=== PATIENT | female | born 1955 | race Caucasian/White ===

== ENCOUNTER → 2016-09-21 | Outpatient (CLI) | payer BC ==
--- NOTE | 2016-09-22 08:54 | MM ---
Reason for exam: screening (asymptomatic). Last mammogram was performed 2 years and 5 months ago. History: Patient is postmenopausal. Physical Findings: A clinical breast exam by your physician is recommended on an annual basis and results should be correlated with mammographic findings. MG Screening Mammo w CAD Bilateral CC and MLO view(s) were taken. Prior study comparison: April 11, 2014, bilateral MG screening mammo w CAD. July 14, 2006, bilateral screening mammogram w/CAD. There are scattered fibroglandular densities. No significant changes when compared with prior studies. ASSESSMENT: Benign, BI-RAD 2 RECOMMENDATION: Routine screening mammogram of both breasts in 1 year.
== END | disposition home or self-care (01) ==
LOC: RADMAMWWP 08:43
PROVIDERS: ATTEND Family Medicine
DX: Z12.31 Encounter for screening mammogram for malignant neoplasm of breast (principal)

== ENCOUNTER → 2019-01-13 | Outpatient (CLI) | payer BC ==
--- NOTE | 2019-01-13 15:48 | US ---
EXAMINATION TYPE: US thyroid st tissue head/neck DATE OF EXAM: 01/13/2019 COMPARISON: NONE CLINICAL HISTORY: L02.91 abscess. Patient states she had a tick bite that grew and her skin was turni ng red. She has been on two rounds of antibiotics. Order states abscess. Scanned over area, left posterior neck, that patient pointed out as area of concern. There is av0.5 x 0.5 x 0.5 cm hypoechoic area that appears encased. Adjacent to this there is a 0.6 x 0.4 cm hypoecho ic area that also appears encased. No drainable fluid collection identified. IMPRESSION: 1. Subcutaneous collections could be tiny abscesses. These are 0.5 cm or less.
== END ==
LOC: RADUSWWP 15:05
PROVIDERS: ATTEND Family Medicine
DX: L02.91 Cutaneous abscess, unspecified (principal)
CPT/HCPCS: 76536

== ENCOUNTER → 2019-01-30 | Outpatient (CLI) | payer MEDICARE, BC ==
--- NOTE | 2019-02-01 09:10 | MM ---
Reason for exam: screening (asymptomatic). Last mammogram was performed 2 years and 4 months ago. History: Patient is postmenopausal. Physical Findings: A clinical breast exam by your physician is recommended on an annual basis and results should be correlated with mammographic findings. MG 3D Screening Mammo W/Cad Bilateral CC and MLO view(s) were taken. Prior study comparison: September 21, 2016, bilateral MG screening mammo w CAD. April 11, 2014, bilateral MG screening mammo w CAD. The breast tissue is heterogeneously dense. This may lower the sensitivity of mammography. No discrete abnormality. ASSESSMENT: Negative, BI-RAD 1 RECOMMENDATION: Routine screening mammogram of both breasts in 1 year.
== END | disposition home or self-care (01) ==
LOC: RADMAMWWP 10:08
PROVIDERS: ATTEND Family Medicine
DX: Z12.31 Encounter for screening mammogram for malignant neoplasm of breast (principal)
CPT/HCPCS: 77063; 77067

== ENCOUNTER → 2020-03-05 | Outpatient (CLI) | payer MEDICARE | END | disposition home or self-care (01) | LOC: LABWHC1 08:02 | PROVIDERS: ATTEND Family Medicine | DX: Z20.828 Contact with and (suspected) exposure to other viral communicable diseases (principal) | CPT/HCPCS: U0003; C9803 ==

== ENCOUNTER → 2021-07-18 | Outpatient (CLI) | payer MEDICARE ==
--- NOTE | 2021-07-22 09:46 | MM ---
Reason for exam: screening (asymptomatic). Last mammogram was performed 2 years and 6 months ago. History: Patient is postmenopausal. Physical Findings: A clinical breast exam by your physician is recommended on an annual basis and results should be correlated with mammographic findings. MG 3D Screening Mammo W/Cad Bilateral CC and MLO view(s) were taken. Prior study comparison: January 30, 2019, bilateral MG 3d screening mammo w/cad. September 21, 2016, bilateral MG screening mammo w CAD. There are scattered fibroglandular densities. No significant changes when compared with prior studies. ASSESSMENT: Benign, BI-RAD 2 RECOMMENDATION: Routine screening mammogram of both breasts in 1 year.
== END | disposition home or self-care (01) ==
LOC: RADMAMWWP 07:53
PROVIDERS: ATTEND Family Medicine
DX: Z12.31 Encounter for screening mammogram for malignant neoplasm of breast (principal)
CPT/HCPCS: 77063; 77067

== ENCOUNTER → 2023-02-24 | Outpatient (CLI) | payer MEDICARE ==
--- NOTE | 2023-02-25 08:13 | MM ---
Reason for Exam: Screening (asymptomatic). Last mammogram was performed 1 year(s) and 8 month(s) ago. Patient History: Menarche at age 15. First Full-Term at age 19. Postmenopausal. Risk Values: Lucrecia 5 year model risk: 1.4%. NCI Lifetime model risk: 4.3%. Prior Study Comparison: 09/21/2016 Bilateral Screening Mammogram, [facility]. 01/30/2019 Bilateral Screening Mammogram, [facility] 07/18/2021 Bilateral Screening Mammogram, [facility]. Tissue Density: The breast tissue is heterogeneously dense. This may lower the sensitivity of mammography. Findings: Analyzed By CAD. There is no suspicious group of microcalcifications or new suspicious mass in either breast. Benign vascular calcifications within the right breast. Overall Assessment: Benign, BI-RAD 2 Management: Screening Mammogram of both breasts in 1 year. A clinical breast exam by your physician is recommended on an annual basis and results should be correlated with mammographic findings. Note on Lucrecia scores and lifetime risk: 1. A Lucrecia score greater than 3% is considered moderate risk. If this is the case, consider specialist referral to assess eligibility for a risk reducing agent. If overall lifetime risk for the development of breast cancer is 20% or higher, the patient may qualify for future screening with alternating mammogram and breast MRI. Electronically signed and approved by: Ryan Ray D.O.
== END | disposition home or self-care (01) ==
LOC: RADMAMWWP 15:43
PROVIDERS: ATTEND Family Medicine
DX: Z12.31 Encounter for screening mammogram for malignant neoplasm of breast (principal); Z78.0 Asymptomatic menopausal state
CPT/HCPCS: 77063; 77067

== ENCOUNTER → 2024-01-12 | Outpatient (CLI) | payer MEDICARE ==
--- NOTE | 2024-01-12 13:18 | CT ---
EXAMINATION TYPE: CT brain wo con CT DLP: 1103.7 mGycm, Automated exposure control for dose reduction was used. DATE OF EXAM: 01/12/2024 12:45 PM COMPARISON: None. CLINICAL INDICATION:Female, 68 years old with history of S09.90XA UNSPECIFIED INJURY OF HEAD, INITIAL ENCOU, head injury few weeks ago, pt says ever since she hasn't felt normal. TECHNIQUE: Brain: Axial CT images of the brain were obtained with coronal and sagittal reformats created and rev iewed. Contrast used: None. Oral contrast used: None. FINDINGS: Brain: Extra-axial spaces: No abnormal extra-axial fluid collections. Ventricular system: Within normal limits Cerebral parenchyma: No acute intraparenchymal hemorrhage or mass effect. The aguirre-white junction is well differentiated. Cerebellum: Unremarkable. Mass effect: No evidence of midline shift. Intracranial vasculature: Atherosclerotic calcifications of the intracranial vessels. Soft tissues: Normal. Calvarium/osseous structures: No depressed skull fracture. Paranasal sinuses and mastoid air cells: Mild scattered paranasal sinus disease. Visualized orbits: Orbital contents are intact. IMPRESSION: No acute intracranial process.
== END | disposition home or self-care (01) ==
LOC: RADCTMAIN 12:21
PROVIDERS: ATTEND Family Medicine
DX: S09.90XA Unspecified injury of head, initial encounter (principal)
CPT/HCPCS: 70450

== ENCOUNTER 2024-10-09 16:48 | Emergency (ER) | payer MEDICARE ==
[2024-10-09 17:38] VITALS: TEMP 98.2
--- NOTE | 2024-10-09 17:40 | ED ---
Headache HPI - General Source: patient, RN notes reviewed Mode of arrival: ambulatory Limitations: no limitations <Coby Norris - Last Filed: 10/09/24 17:39> <Shayy Duffy - Last Filed: 10/10/24 20:17> - General Chief Complaint: Headache Stated Complaint: headache/high blood pressure Time Seen by Provider: 10/09/24 17:39 - History of Present Illness Initial Comments: Quick note: 69-year-old female presented to ER for evaluation of hypertension and headache. Patient takes 50 mg losartan daily for hypertension. For the past week she has been having a headache. Patient reports elevated blood pressures for which she is taking up to 100 mg of losartan without relief. Patient also admits to a cough. No chest pain or shortness of breath. (Coby Norris) 69-year-old female presenting with chief complaint of headache. Patient notes that for the past week she has had issues with elevated blood pressure and headaches. She takes 50 mg of losartan daily. At times she has taken a second dose and this seems to help bring down her blood pressure and headache. Patient has also had a bit of a cough. She is having no blurred vision, chest pain, difficulty breathing, abdominal pain, lower extremity swelling. She was seen at urgent care today who advised her to come to the ER (Shayy Duffy) - Related Data Allergies Allergy/AdvReac Type Severity Reaction Status Date / Time lisinopril Allergy Anaphylaxis Verified 10/09/24 17:38 Review of Systems ROS Other: All systems not noted in ROS Statement are negative. <Coby Norris - Last Filed: 10/09/24 17:39> ROS Other: All systems not noted in ROS Statement are negative. <Shayy Duffy - Last Filed: 10/10/24 20:17> ROS Statement: Those systems with pertinent positive or pertinent negative responses have been documented in the HPI. Past Medical History Past Medical History: Hyperlipidemia, Hypertension, Osteoarthritis (OA) Past Surgical History: Adenoidectomy, Appendectomy, Hysterectomy, Tonsillectomy Smoking Status: Never smoker <Coby Norris - Last Filed: 10/09/24 17:39> General Exam Limitations: no limitations <Coby Norris - Last Filed: 10/09/24 17:39> Limitations: no limitations General appearance: alert, in no apparent distress Head exam: Present: atraumatic, normocephalic, normal inspection Eye exam: Present: normal appearance, EOMI Neck exam: Present: normal inspection. Absent: meningismus Respiratory exam: Present: normal lung sounds bilaterally. Absent: respiratory distress, wheezes, rales, rhonchi, stridor Cardiovascular Exam: Present: regular rate, normal rhythm, normal heart sounds. Absent: systolic murmur, diastolic murmur, rubs, gallop, clicks Neurological exam: Present: alert, oriented X3 Psychiatric exam: Present: normal affect, normal mood Skin exam: Present: warm, dry, normal color <Shayy Duffy - Last Filed: 10/10/24 20:17> - General Exam Comments Initial Comments: Visual Physical Exam Vital signs reviewed General: Well-appearing, nontoxic, no acute distress. Head: Normocephalic, atraumatic Eyes: PERRLA, EOMI ENT: Airway patent Chest: Nonlabored breathing Skin: No visual rash, normal skin tone Neuro: Alert and oriented 3 Musculoskeletal: No gross abnormalities (Coby Norris) Course Vital Signs 10/09/24 10/09/24 10/09/24 17:33 20:17 20:30 Temperature 98.2 F Pulse Rate 100 93 96 Respiratory 20 16 16 Rate Blood Pressure 209/89 183/93 196/106 O2 Sat by Pulse 98 97 Oximetry 10/09/24 21:20 Temperature Pulse Rate 84 Respiratory 16 Rate Blood Pressure 179/93 O2 Sat by Pulse 96 Oximetry Medical Decision Making <Coby Norris - Last Filed: 10/09/24 17:39> - Lab Data Result diagrams: 10/09/24 17:49 10/09/24 17:49 <Shayy Duffy - Last Filed: 10/10/24 20:17> - Medical Decision Making I performed the quick note portion of this chart. Electronically signed by Coby Norris PA-C (Coby Norris) Was pt. sent in by a medical professional or institution (RAUL Espinoza, DEWATERER OPERATOR, urgent care, hospital, or snf...) When possible be specific @ -No Did you speak to anyone other than the patient for history (EMS, parent, family, police, friend...)? What history was obtained from this source @ -No Did you review nursing and triage notes (agree or disagree)? Why? @ -I reviewed and agree with nursing and triage notes Were old charts reviewed (outside hosp., previous admission, EMS record, old EKG , old radiological studies, urgent care reports/EKG's, snf records)? Report findings @ -No old charts were reviewed Differential Diagnosis (chest pain, altered mental status, abdominal pain women, abdominal pain men, vaginal bleeding, weakness, fever, dyspnea, syncope, headache, dizziness, GI bleed, back pain, seizure, CVA, palpatations, mental health, musculoskeletal)? @ -MDM Differential Headache: Migraine, tension, cluster, carbon monoxide, central venous thrombosis, pension karma temporal arteritis, acute closure glaucoma, intercranial hemorrhage, mastoiditis, sinusitis, head injury this is not meant to be an all-inclusive list. EKG interpreted by me (3pts min.). @ -EKG shows sinus rhythm ventricular rate 93. ME interval 153. QRS 90. QT 346. QTc 397 X-rays interpreted by me (1pt min.). @ -None done CT interpreted by me (1pt min.). @ -CT shows no acute intracranial process. Mild periventricular white matter ischemic type changes U/S interpreted by me (1pt. min.). @ -None done What testing was considered but not performed or refused? (CT, X-rays, U/S, labs )? Why? @ -None What meds were considered but not given or refused? Why? @ -None Did you discuss the management of the patient with other professionals (professionals i.e. , PA, DEWATERER OPERATOR, lab, RT, psych nurse, social work lecturer, silver recovery operator, teacher, civil preparedness training officer, case management rn)? Give summary @ -No Was smoking cessation discussed for >3mins.? @ -No Was critical care preformed (if so, how long)? @ -No Were there social determinants of health that impacted care today? How? (Homelessness, low income, unemployed, alcoholism, drug addiction, transportation, low edu. Level, literacy, decrease access to med. care, halfway, rehab)? @ -No Was there de-escalation of care discussed even if they declined (Discuss DNR or withdrawal of care, Hospice)? DNR status @ -No What co-morbidities impacted this encounter? (DM, HTN, Smoking, COPD, CAD, Cancer, CVA, ARF, Chemo, Hep., AIDS, mental health diagnosis, sleep apnea, morbid obesity)? @ -None Was patient admitted / discharged? Hospital course, mention meds given and route, prescriptions, significant lab abnormalities, going to OR and other pertinent info. @ -69-year-old female presenting with chief complaint of headache. Patient has also had elevated blood pressure over the past week. Workup is initiated by triage. Lab work is grossly unremarkable other than a glucose of 125. She is negative for influenza, RSV and COVID. Brain CT shows no acute process. Patient is later brought back to her room and evaluated by myself. She is hypertensive at 193/93. She was given labetalol 10 mg IV and comes down to 179/93. She reports improvement in her headache and feels much better. Patient is instructed to keep track of her blood pressures with a blood pressure diary and follow-up with her PCP regarding her elevated blood pressure. Follow-up w ith PCP. Report back to ER with any new or worsening symptoms. Discussed return parameters and answered all questions. Patient conveyed verbal understanding and agreed to the plan. I discussed this case in detail with my attending Dr. Simmons Undiagnosed new problem with uncertain prognosis? @ -No Drug Therapy requiring intensive monitoring for toxicity (Heparin, Nitro, Insulin, Cardizem)? @ -No Were any procedures done? @ -No Diagnosis/symptom? @ -Hypertension headache Acute, or Chronic, or Acute on Chronic? @ -Acute Uncomplicated (without systemic symptoms) or Complicated (systemic symptoms)? @ -Uncomplicated Side effects of treatment? @ -No Exacerbation, Progression, or Severe Exacerbation? @ -No Poses a threat to life or bodily function? How? (Chest pain, USA, AL, pneumonia, PE, COPD, DKA, ARF, appy, cholecystitis, CVA, Diverticulitis, Homicidal, Suicidal, threat to staff... and all critical care pts) @ -No immediate threat (Shayy Duffy) - Lab Data Lab Results 10/09/24 10/09/24 10/09/24 Range/Units 17:47 17:49 17:49 WBC 8.8 (3.8-10.6) k/uL RBC 4.23 (3.80-5.40) m/uL Hgb 13.1 (11.4-16.0) gm/dL Hct 40.5 (34.0-46.0) % MCV 95.9 (80.0-100.0) fL MCH 31.1 (25.0-35.0) pg MCHC 32.5 (31.0-37.0) g/dL RDW 13.1 (11.5-15.5) % Plt Count 270 (150-450) k/uL MPV 7.7 Neutrophils % 57 % Lymphocytes % 35 % Monocytes % 5 % Eosinophils % 1 % Basophils % 1 % Neutrophils # 5.0 (1.3-7.7) k/uL Lymphocytes # 3.1 (1.0-4.8) k/uL Monocytes # 0.4 (0-1.0) k/uL Eosinophils # 0.1 (0-0.7) k/uL Basophils # 0.1 (0-0.2) k/uL Sodium 140 (137-145) mmol/L Potassium 4.0 (3.5-5.1) mmol/L Chloride 103 (98-107) mmol/L Carbon Dioxide 25 (22-30) mmol/L Anion Gap 12 mmol/L BUN 15 (7-17) mg/dL Creatinine 0.82 (0.52-1.04) mg/dL Est GFR (CKD-EPI)AfAm 84 (>60 ml/min/1.73 sqM) Est GFR (CKD-EPI)NonAf 73 (>60 ml/min/1.73 sqM) Glucose 125 H (74-99) mg/dL Calcium 10.0 (8.4-10.2) mg/dL Total Bilirubin 0.4 (0.2-1.3) mg/dL AST 32 (14-36) U/L ALT 25 (4-34) U/L Alkaline Phosphatase 65 (38-126) U/L Total Protein 8.1 (6.3-8.2) g/dL Albumin 4.6 (3.5-5.0) g/dL Influenza Type A (PCR) Not Detected (Not Detectd) Influenza Type B (PCR) Not Detected (Not Detectd) RSV (PCR) Not Detected (Not Detectd) SARS-CoV-2 (PCR) Not Detected (Not Detectd) Disposition <Starperrya,Coby - Last Filed: 10/09/24 17:39> Is patient prescribed a controlled substance at d/c from ED?: No Time of Disposition: 21:24 <Shayy Duffy - Last Filed: 10/10/24 20:17> Clinical Impression: Headache due to hypertension Disposition: HOME SELF-CARE Condition: Fair Instructions (If sedation given, give patient instructions): Acute Headache (ED), Hypertensive Crisis (ED) Additional Instructions: Follow-up with your PCP. Report back to ER with any new or worsening symptoms. Take your blood pressure at the same time each day, for example breakfast lunch and dinner. Bring these values to your doctor's appointment to discuss your blood pressure and any medication adjustments that may be needed Referrals: Alex Vela MD [Primary Care Provider] - 1-2 days
[2024-10-09 18:01] LABS: Basophils # (A) 0.1 k/uL (0-0.2); Basophils % (A) 1 %; Eosinophils # (A) 0.1 k/uL (0-0.7); Eosinophils % (A) 1 %; HCT 40.5 % (34.0-46.0); HGB 13.1 gm/dL (11.4-16.0); Lymphocytes # (A) 3.1 k/uL (1.0-4.8); Lymphocytes % (A) 35 %; MCH 31.1 pg (25.0-35.0); MCHC 32.5 g/dL (31.0-37.0); MCV 95.9 fL (80.0-100.0); Mean Platelet Volume 7.7; Monocytes # (A) 0.4 k/uL (0-1.0); Monocytes % (A) 5 %; Neutrophils % (A) 57 %; Platelet Count 270 k/uL (150-450); RBC 4.23 m/uL (3.80-5.40); RDW 13.1 % (11.5-15.5); WBC 8.8 k/uL (3.8-10.6)
[2024-10-09 18:15] LABS: ALT 25 U/L (4-34); AST 32 U/L (14-36); African American GFR (CKD) 84 (>60 ml/min/1.73 sqM); Albumin 4.6 g/dL (3.5-5.0); Alkaline Phosphatase 65 U/L (38-126); Anion Gap 12 mmol/L; Blood Urea Nitrogen 15 mg/dL (7-17); Carbon Dioxide 25 mmol/L (22-30); Chloride 103 mmol/L (98-107); Glucose 125 mg/dL (74-99); Non-African American GFR(CKD) 73 (>60 ml/min/1.73 sqM); Sodium 140 mmol/L (137-145); Total Bilirubin 0.4 mg/dL (0.2-1.3); Total Protein 8.1 g/dL (6.3-8.2)
[2024-10-09 18:38] LABS: Influenza A Not Detected (Not Detectd); Influenza B Not Detected (Not Detectd); RSV Not Detected (Not Detectd)
--- NOTE | 2024-10-09 19:55 | CT ---
EXAMINATION TYPE: CT brain wo con DATE OF EXAM: 10/09/2024 7:44 PM COMPARISON: 01/12/2024 CLINICAL INDICATION: Female, 69 years old with history of headache HTN, Sent from clinic with headach es and high blood pressure. No numbness, no tingling. Skin w/d clear speech symm steady upright gait TECHNIQUE: CT of the brain is performed utilizing 3 mm thick sections through the posterior fossa and 3 mm thick sections through the remaining calvarium. Study is performed within 24 hours of arrival to the hospital. Contrast used: mL of , (none if empty) CT DLP: 1168.6 mGycm, Automated exposure control for dose reduction was used. FINDINGS: No abnormal hyperdensity is present to suggest an acute intracranial hemorrhage. No mass lesion is evident. No acute infarcts are evident. Mild periventricular white matter hypodensity is present, likely on th e basis of chronic white matter ischemic changes. Ventricles and sulci are appropriate for the patient age. Paranasal sinuses and mastoid air cells within the [id number] are clear. IMPRESSION: 1. No acute intracranial process. Follow up MRI can be performed as clinically indicated. 2. Mild periventricular white matter ischemic-type changes. [facility], , 10/09/2024 7:53 PM
[2024-10-09 20:22] VITALS: RESP 16
[2024-10-09] MEDS: LABETALOL 5 MG/ML VIAL MDV IVP STA (20:31)
[2024-10-09 21:20] VITALS: BP 179/93; PULSE 84
== END 2024-10-09 21:30 | disposition home or self-care (01) ==
LOC: EC 16:48
DX: R51.9 Headache, unspecified (principal); I10 Essential (primary) hypertension; Z88.8 Allergy status to other drugs, medicaments and biological substances
CPT/HCPCS: 36415; 93005; 80053; 85025; 87636; 70450; 99284; 96374; J1920

== ENCOUNTER → 2024-10-30 | Outpatient (CLI) | payer MEDICARE ==
--- NOTE | 2024-10-30 10:28 | US ---
EXAMINATION TYPE: US carotid duplex BILAT DATE OF EXAM: 10/30/2024 COMPARISON: NONE CLINICAL INDICATION: Female, 69 years old with history of I10 HTN R09.89 OTH SYMPTOMS AND SIGNS; Margarita ent denies any signs or symptoms, new onset uncontrolled HTN. On meds x 10 years, still elevated on s pecial medications Additional History: .... TECHNIQUE: Grayscale, color Doppler and spectral Doppler evaluation of the bilateral carotid systems and vertebral arteries. Indirect Doppler criteria was utilized. FINDINGS: EXAM MEASUREMENTS: RIGHT: Peak Systolic Velocity (PSV) cm/sec ----- Right CCA: 89 ----- Right ICA: 103 ----- Right ECA: 83 ICA/CCA ratio: 1.2 RIGHT: End Diastole cm/sec ----- Right CCA: 24 ----- Right ICA: 38 ----- Right ECA: 12 LEFT: Peak Systolic Velocity (PSV) cm/sec ----- Left CCA: 78 ----- Left ICA: 93 ----- Left ECA: 82 ICA/CCA ratio: 1.2 LEFT: End Diastole cm/sec ----- Left CCA: 23 ----- Left ICA: 30 ----- Left ECA: 0 VERTEBRALS (direction of flow): Right Vertebral: Antegrade Left Vertebral: Antegrade Rhythm: Normal WRITER PRODUCER NOTES: No intimal thickening, plaque, or elevated velocities seen. Color Doppler imaging shows patency with blood flow throughout the carotid artery. Spectral waveforms are within normal limits. IMPRESSION: Right: No hemodynamically significant stenosis. Left: No hemodynamically significant stenosis. Criteria for Assigning % of Stenosis / Diameter reduction (Estimation based on the indirect measurements of the internal carotid artery velocities (ICA PSV). 1. Normal (no stenosis)=ICA PSV < 125 cm/s: ratio < 2.0: ICA EDV<40 cm/s. 2. Less than 50% stenosis=ICA PSV < 125 cm/s: ratio < 2.0: ICA EDV<40 cm/s. 3. 50 to 69% stenosis=ICA PSV of 125 to 230 cm/s: ration 2.0 ? 4.0: ICA EDV 40-100 cm/s. 4. Greater than 70% stenosis to near occlusion= ICA PSV > 230 cm/s: ratio > 4.0: ICA EDV > 100 cm/s. 5. Near occlusion= ICA PSV velocities may be low or undetectable: variable ratio and ICA EDV. 6. Total occlusion=unable to detect flow. [facility], , 10/30/2024 10:26 AM
--- NOTE | 2024-10-30 10:29 | US ---
EXAMINATION TYPE: US renal artery duplex complet DATE OF EXAM: 10/30/2024 COMPARISON: NONE CLINICAL INDICATION: Female, 69 years old with history of I10 HTN R09.89 OTH SYMPTOMS AND SIGNS; On H TN meds x 10 years, uncontrollable recently, still slightly elevated on special meds; Hx Horseshoe ki dney; Patient denies any other signs, symptoms or relevant history TECHNIQUE: Grayscale, color Doppler and spectral Doppler imaging of the bilateral renal arteries and kidneys. FINDINGS: MEASUREMENTS: RENAL SIZE: Right Kidney: 8.3 x 4.5 x 3.3 cm Left Kidney: 5.9 x 3.2 x 3.1 cm Right Kidney: wnl Left Kidney: wnl Abd Aorta: No AAA visualized RESISTANCE INDEX Right: 0.86 Left: 0.74 RA/AO RATIO (< 3.5 ) Right: 0.63 Left: 0.63 RENAL ARTERY VELOCITY ( < 180 cm/s) Right: 61 Left: 61 Field Enumerator Notes: Difficult exam due to horseshoe kidney / kidney lie Appropriate color Doppler flow and spectral waveforms to the kidneys bilaterally. Grayscale imaging of the kidneys and show no evidence for hydronephrosis or mass. No renal calculi or cysts visualized. IMPRESSION: Suboptimal study without convincing evidence for hemodynamically significant focal renal artery stenosis. [facility], , 10/30/2024 10:27 AM
--- NOTE | 2024-10-30 16:39 | CA ---
Stress Echo Report Daisha Hankins Age: 69 Gender: F : 1955 Exam Date: 10/30/2024 11:30 Exam Location: [facility] Ht (in): 64 Wt (lb): 155 Ordering Physician: Alex Vela MD Referring Physician: Dane OVALLES Roller Print Tender: FREDO Technologist Procedure CPT: Indication: I10 HTN R09.89 OTH SYMPTOMS AND SIGNS ICD-9 Codes: Rhythm: Patient History: HTN, HYPERCHOLESTEROLEMIA Cardiac Medications: AMLODIPINE, HZTZ, ATORVASTATIN Medications in past 24 hours: Contrast: Stress Results Protocol: Miguel Total dose(mL): Exercise Duration (min:sec): 7:[address] Depression (mm): Angina Score: Wagner Score: METS: 8.7 Resting HR: 95 Resting BP: 143 / 69 Peak HR: 151 Peak BP: 215 / 72 Max Predicted HR: 150 101 % Max Predicted HR Target HR: 128 Double Product: [id number] Stress Summary: BP Response: Reason for Termination: MAX EXERTION/TARGET HR Cardiac Symptoms: NO SYMPTOMS ECG Analysis Resting ECG: Stress ECG: Arrhythmia: Echo Analysis Resting Echo: Peak Echo Analysis: MEASUREMENTS (Male/Female) Normal Values CONCLUSIONS Patient underwent exercise stress echo with a Miguel protocol treadmill stress test. Patient exercised into Stage 2 for a total of 7 minutes and 16 seconds reaching a total of 8.7 METS. Patient's maximum heart rate was 151 which represented 100% age- predicted maximum heart rate. Stress EKG portion: At baseline patient's EKG showed normal sinus rhythm, normal axis, no significant ST-T wave abnormalities. At peak exercise, EKG showed no change from baseline. Stress echo portion: 2-D echocardiogram was performed in the parasternal long, personal short, apical 2 and apical four-chamber views at rest, peak exercise and in recovery. At baseline, echocardiogram showed left ventricular ejection fraction 55% without wall motion abnormalities. With peak exercise, echocardiogram shows improvement in left ventricular ejection fraction, increase contractility, decrease in left ventricular end systolic dimension without wall motion abnormalities consistent with a normal response to exercise. Conclusions: 1. Normal EKG and echo response to exercise without evidence of inducible ischemia. 2. Good exercise capacity. Dr. Jose Zayas DO (Electronically Signed) Final Date: 30 October 2024 16:38
== END | disposition home or self-care (01) ==
LOC: RADUSWWP 09:09
PROVIDERS: ATTEND Family Medicine
DX: I10 Essential (primary) hypertension (principal); R09.89 Other specified symptoms and signs involving the circulatory and respiratory systems; E78.00 Pure hypercholesterolemia, unspecified
CPT/HCPCS: 93351; 93880; 93975